=== PATIENT | female | born 1950 | race African-American/Black ===

== ENCOUNTER 2016-05-31 12:12 | Emergency (ER) | payer OTHER ==
[~2016-05-31] VITALS: Ht 165.1 cm; Wt 64.4 kg
[2016-05-31 12:37] VITALS: BP 148/79
== END 2016-05-31 13:51 | disposition home or self-care (01) ==
LOC: ED 12:12
DX: J30.9 Allergic rhinitis, unspecified (principal); H11.31 Conjunctival hemorrhage, right eye; Z88.8 Allergy status to other drugs, medicaments and biological substances; Z88.2 Allergy status to sulfonamides

== ENCOUNTER 2016-06-03 16:51 | Emergency (ER) | payer OTHER ==
[~2016-06-03] VITALS: Ht 165.1 cm; Wt 63.7 kg
[2016-06-03 20:53] VITALS: BP 139/78
== END 2016-06-03 20:53 | disposition left against medical advice (07) ==
LOC: ED 16:51
DX: Z53.21 Procedure and treatment not carried out due to patient leaving prior to being seen by health care provider (principal)

== ENCOUNTER 2016-10-28 04:06 | Emergency (ER) | payer OTHER ==
[2016-10-28 05:48] VITALS: BP 163/84
== END 2016-10-28 05:48 | disposition home or self-care (01) ==
LOC: ED 04:06
DX: R06.02 Shortness of breath (principal); I10 Essential (primary) hypertension; K21.9 Gastro-esophageal reflux disease without esophagitis; Z79.899 Other long term (current) drug therapy

== ENCOUNTER 2017-01-22 00:13 | Emergency (ER) | payer OTHER ==
[2017-01-22 01:47] VITALS: BP 148/91
== END 2017-01-22 01:35 | disposition home or self-care (01) ==
LOC: ED 00:13
DX: I10 Essential (primary) hypertension (principal); M25.512 Pain in left shoulder; R07.89 Other chest pain; F43.9 Reaction to severe stress, unspecified; M54.2 Cervicalgia; M62.830 Muscle spasm of back; K21.9 Gastro-esophageal reflux disease without esophagitis; Z88.8 Allergy status to other drugs, medicaments and biological substances; Z88.2 Allergy status to sulfonamides

== ENCOUNTER 2017-08-24 00:25 | Emergency (ER) | payer OTHER ==
[~2017-08-24] VITALS: Ht 165.1 cm; Wt 65.3 kg
[2017-08-24 01:21] LABS: BASOPHIL % 0.6 % (0-2); PLATELET COUNT 244 x10^3mcL (130-400); RED CELL DISTRIBUTION WIDTH 13.8 % (11.5-14.5)
[2017-08-24 01:33] LABS: CALCIUM 9.1 mg/dL (8.5-10.1); CHLORIDE SERUM 105 mmol/L (98-107); CREATININE SERUM 0.6 mg/dL (0.6-1.0); GFR1 > 60 mL/min; GLUCOSE SERUM 112 mg/dL (74-106); POTASSIUM SERUM 3.8 mmol/L (3.5-5.1); SODIUM SERUM 142 mmol/L (136-145)
[2017-08-24 01:38] LABS: ALBUMIN 3.7 g/dL (3.4-5.0); ALKALINE PHOSPHATASE 119 U/L (46-116); ALT/SGPT 22 U/L (14-59); AST/SGOT 18 U/L (15-37); BILIRUBIN TOTAL 0.28 mg/dL (0.20-1.00); LIPASE 114 IU/L (73-393); TOTAL PROTEIN, SERUM 7.4 g/dL (6.4-8.2)
[2017-08-24 02:37] LABS: UA SPECIFIC GRAVITY <=1.005 (1.005-1.035); microscopic required? YES; urine erythrocyte NEGATIVE (NEGATIVE)
[2017-08-24 05:35] VITALS: BP 144/76
== END 2017-08-24 05:35 | disposition home or self-care (01) ==
LOC: ED 00:25
PROVIDERS: Emergency Medicine
DX: R10.31 Right lower quadrant pain (principal); M54.5 Low back pain; I10 Essential (primary) hypertension; Z88.2 Allergy status to sulfonamides; Z88.1 Allergy status to other antibiotic agents; Z88.8 Allergy status to other drugs, medicaments and biological substances
CPT/HCPCS: 36415

== ENCOUNTER → 2017-10-05 | Outpatient (CLI) | payer SELFPAY | END | disposition home or self-care (01) | LOC: LB 09:30 | DX: Z00.00 Encounter for general adult medical examination without abnormal findings (principal) | CPT/HCPCS: 36415 ==

== ENCOUNTER 2020-01-22 21:20 | Emergency (ER) | payer OTHER ==
[~2020-01-22] VITALS: Ht 167.6 cm; Wt 71.2 kg
[2020-01-22 21:55] VITALS: Ht 167.6 cm; Wt 71.2 kg
[2020-01-22 23:52] LABS: BASOPHIL % 0.7 % (0-2); PLATELET COUNT 249 x10^3mcL (130-400)
[2020-01-23 00:11] LABS: CARBON DIOXIDE 30.5 mmol/L (21-32); CHLORIDE SERUM 105 mmol/L (98-107); CREATININE SERUM 0.8 mg/dL (0.6-1.0); GLUCOSE SERUM 109 mg/dL (74-106); POTASSIUM SERUM 4.4 mmol/L (3.5-5.1); SODIUM SERUM 141 mmol/L (136-145)
[2020-01-23 00:15] LABS: ALBUMIN 3.9 g/dL (3.4-5.0); ALKALINE PHOSPHATASE 97 U/L (46-116); ALT/SGPT 22 U/L (14-59); AST/SGOT 22 U/L (15-37); BILIRUBIN TOTAL 0.4 mg/dL (0.20-1.00); LIPASE 95 IU/L (73-393); TOTAL PROTEIN, SERUM 7.2 g/dL (6.4-8.2)
[2020-01-23 00:50] VITALS: BP 167/76
== END 2020-01-23 00:50 | disposition home or self-care (01) ==
LOC: ED 21:20
PROVIDERS: Student in an Organized Health Care Education/Training Program
DX: R10.13 Epigastric pain (principal); I10 Essential (primary) hypertension; Z88.8 Allergy status to other drugs, medicaments and biological substances; Z88.2 Allergy status to sulfonamides; Z88.1 Allergy status to other antibiotic agents